=== PATIENT | male | born 1995 | race Caucasian/White ===

== ENCOUNTER 2017-06-28 10:29 | Emergency (ER) | payer OTHER ==
[~2017-06-28] VITALS: Ht 182.9 cm; Wt 100.0 kg
[2017-06-28 10:31] VITALS: BP 132/78; PULSE 78; RESP 18; TEMP 98.9; O2SAT 98
[2017-06-28] MEDS ORDERED: KETOROLAC TROMETHAMINE 60 MG/2 ML (IM) VIAL IM ONE (11:45)
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
[2017-06-28] MEDS ORDERED: ROBA500T PO (12:50)
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
== END 2017-06-28 13:08 | disposition home or self-care (01) ==
LOC: NEPK 10:29
DX: S16.1XXA Strain of muscle, fascia and tendon at neck level, initial encounter (principal); R51 Headache; V49.40XA Driver injured in collision with unspecified motor vehicles in traffic accident, initial encounter; Y92.410 Unspecified street and highway as the place of occurrence of the external cause
CPT/HCPCS: 70450; 72125; 96372; 99285; J1885